=== PATIENT | male | born 1965 | race Caucasian/White ===

== ENCOUNTER 2018-09-22 08:44 | Day surgery (SDC) | payer OTHER ==
[2018-09-22] MEDS ORDERED: LABETALOL HCL 20MG INJ IV (10:00)
[2018-09-22] MEDS ORDERED: ONDANSETRON 4 MG INJ IV (10:00)
[2018-09-22] MEDS ORDERED: ALBUTEROL 0.083% (NEB) 2.5 MG/3 ML AMP HHN (10:00)
[2018-09-22] MEDS ORDERED: METOCLOPRAMIDE 10 MG INJ IV (10:00)
[2018-09-22] MEDS ORDERED: EPHEDrine 25 MG/5 ML SYG IV (10:00)
[2018-09-22] MEDS ORDERED: hydrALAzine 20 MG INJ IV (10:00)
[2018-09-22] MEDS ORDERED: FENTAnyl 50 MCG/ML VIAL IV ×2 (10:00)
[2018-09-22] MEDS ORDERED: DIPHENHYDRAMINE 50 MG INJ IV (10:00)
[2018-09-22] MEDS ORDERED: PROPOFOL 60 ML (10:03)
== END 2018-09-22 13:24 | disposition home or self-care (01) ==
LOC: GIL 08:44
DX: R19.5 Other fecal abnormalities (principal); D12.5 Benign neoplasm of sigmoid colon; K29.30 Chronic superficial gastritis without bleeding; D12.8 Benign neoplasm of rectum; E11.9 Type 2 diabetes mellitus without complications; I10 Essential (primary) hypertension
CPT/HCPCS: 43239; 82962; 88305; 88312